=== PATIENT | female | born 1985 | race Caucasian/White ===

== ENCOUNTER 2017-09-08 09:27 | Emergency (ER) | payer SELFPAY ==
[~2017-09-08] VITALS: Ht 160 cm; Wt 67.5 kg
[~2017-09-08 09:27] MED LIST: ALBUTEROL SULF8.5 GM IH; KLONOPIN2 MG PO; LEVAQUIN500 MG PO; ORTHO CYCLEN1 TABLET PO; TESSALON PERLE100 MG PO; TOPAMAX25 MG PO; ZOFRAN ODT4 MG PO
[2017-09-08] MEDS ORDERED: MOTRIN600 MG PO (10:03)
[2017-09-08] MEDS ORDERED: PEN-VEE K,VEET500 MG PO (10:03)
[2017-09-08] MEDS ORDERED: ULTRAM50 MG PO (10:03)
[2017-09-08 10:41] VITALS: BP 148/62
== END 2017-09-08 10:41 | disposition home or self-care (01) ==
LOC: EME 09:27
DX: K02.9 Dental caries, unspecified (principal)
CPT/HCPCS: 99281; 99284